=== PATIENT | female | born 1940 | race Caucasian/White ===

== ENCOUNTER → 2016-12-19 | Outpatient (REF) | payer MEDICARE ==
[~2016-12-19] MED LIST: HYDR-3713 PO
[2016-12-19 12:48] LABS: MEAN CORPUSCULAR HEMOGLOBIN 27.2 pg (27.0-33.0); MEAN CORPUSCULAR HGB CONC 32.3 g/dl (32.0-36.5); MEAN CORPUSCULAR VOLUME 84.2 fl (80.0-96.0); PLATELET COUNT, AUTOMATED 270 k/mm3 (150-450); RED CELL DISTRIBUTION WIDTH 14.1 % (11.5-14.5); WHITE BLOOD COUNT 17.9 K/mm3 (4.0-10.0)
[2016-12-19 12:59] LABS: BANDS 3 % (< 11)
== END ==
LOC: M LABDRWAD 12:17
PROVIDERS: ATTEND Physician Assistant Medical
DX: R50.9 Fever, unspecified (principal)

== ENCOUNTER → 2017-01-09 | Outpatient (REF) | payer MEDICARE ==
[2017-01-09 13:35] LABS: BASO % 0.9 % (0.0-1.0); EOS # 0.1 K/mm3 (0.0-0.50); EOS % 2.2 % (0.0-3.0); LARGE UNSTAINED CELL # 0.1 K/mm3 (0.0-0.4); LARGE UNSTAINED CELL % 2.6 % (0.0-4.0); LYMPH # 1.8 K/mm3 (1.5-4.5); LYMPH % 36.7 % (24.0-44.0); MEAN CORPUSCULAR HEMOGLOBIN 27.1 pg (27.0-33.0); MEAN CORPUSCULAR HGB CONC 31.9 g/dl (32.0-36.5); MEAN CORPUSCULAR VOLUME 84.8 fl (80.0-96.0); MONO # 0.3 K/mm3 (0.0-0.8); NEUTROPHILS # 2.4 K/mm3 (1.8-7.7); NEUTROPHILS % 50.5 % (36.0-66.0); PLATELET COUNT, AUTOMATED 318 k/mm3 (150-450); RED CELL DISTRIBUTION WIDTH 13.9 % (11.5-14.5); WHITE BLOOD COUNT 4.8 K/mm3 (4.0-10.0)
[2017-01-09 13:47] LABS: ALBUMIN 3.5 GM/DL (3.2-5.2); ALBUMIN/GLOBULIN RATIO 1.06 (1.00-1.93); ALKALINE PHOSPHATASE 68 U/L (45-117); ALT/SGPT 25 U/L (12-78); ANION GAP 8 MEQ/L (8-16); AST/SGOT 17 U/L (15-37); BILIRUBIN,TOTAL 0.4 MG/DL (0.2-1.0); BLOOD UREA NITROGEN 15 MG/DL (7-18); CALCIUM LEVEL 8.9 MG/DL (8.8-10.2); CARBON DIOXIDE LEVEL 27 MEQ/L (21-32); CHLORIDE LEVEL 108 MEQ/L (98-107); CHOLESTEROL LEVEL 263 MG/DL (<200); CREATININE FOR GFR 0.82 MG/DL (0.55-1.02); GLOMERULAR FILTRATION RATE > 60.0 (>39); GLUCOSE, FASTING 97 MG/DL (83-110); POTASSIUM SERUM 4.3 MEQ/L (3.5-5.1); SODIUM LEVEL 143 MEQ/L (136-145); TOTAL PROTEIN 6.8 GM/DL (6.4-8.2); TRIGLYCERIDES LEVEL 235 MG/DL (<150)
== END ==
LOC: M SFHCADAM 09:00
PROVIDERS: ATTEND Physician Assistant Medical
DX: E78.5 Hyperlipidemia, unspecified (principal); E55.9 Vitamin D deficiency, unspecified

== ENCOUNTER → 2017-12-24 | Outpatient (REF) | payer MEDICARE ==
[2017-12-24 12:48] LABS: BASO % 0.6 % (0.0-1.0); EOS # 0.2 10^3/uL (0.0-0.50); EOS % 3.3 % (0.0-3.0); HEMATOCRIT 36.1 % (36.0-47.0); HEMOGLOBIN 10.9 g/dl (12.0-15.5); IMMATURE GRANULOCYTE % 0.4 % (0-3.0); LYMPH # 1.8 10^3/uL (1.5-4.5); LYMPH % 37.1 % (24.0-44.0); MEAN CORPUSCULAR HEMOGLOBIN 24.7 pg (27.0-33.0); MEAN CORPUSCULAR HGB CONC 30.2 g/dl (32.0-36.5); MEAN CORPUSCULAR VOLUME 81.9 fl (80.0-96.0); MONO # 0.4 10^3/uL (0.0-0.8); MONO % 8.2 % (0.0-5.0); NEUTROPHILS # 2.5 10^3/uL (1.8-7.7); NEUTROPHILS % 50.4 % (36.0-66.0); PLATELET COUNT, AUTOMATED 271 10^3/uL (150-450); RED BLOOD COUNT 4.41 10^6/uL (4.00-5.40); WHITE BLOOD COUNT 4.9 10^3/uL (4.0-10.0)
[2017-12-24 13:05] LABS: TOTAL 25(OH) VITAMIN D 32.8 NG/ML (30.0-100.0)
[2017-12-24 13:25] LABS: ALBUMIN 3.6 GM/DL (3.2-5.2); ALBUMIN/GLOBULIN RATIO 1.06 (1.00-1.93); ALKALINE PHOSPHATASE 67 U/L (45-117); ALT/SGPT 23 U/L (12-78); ANION GAP 6 MEQ/L (8-16); AST/SGOT 22 U/L (7-37); BILIRUBIN,TOTAL 0.4 MG/DL (0.2-1.0); BLOOD UREA NITROGEN 13 MG/DL (7-18); CALCIUM LEVEL 8.4 MG/DL (8.8-10.2); CARBON DIOXIDE LEVEL 29 MEQ/L (21-32); CHLORIDE LEVEL 108 MEQ/L (98-107); CHOLESTEROL LEVEL 260 MG/DL (<200); CHOLESTEROL RISK RATIO 6.842 (<5); CREATININE FOR GFR 0.95 MG/DL (0.55-1.30); GLOMERULAR FILTRATION RATE > 60.0 (>39); GLUCOSE, FASTING 100 MG/DL (70-100); HDL CHOLESTEROL 38 MG/DL (>40); LDL CHOLESTEROL 173.6 MG/DL (<100); NON-HDL-C 222 MG/DL; POTASSIUM SERUM 4.3 MEQ/L (3.5-5.1); SODIUM LEVEL 143 MEQ/L (136-145); TRIGLYCERIDES LEVEL 242 MG/DL (<150)
== END ==
LOC: M SFHCADAM 07:59
DX: E78.5 Hyperlipidemia, unspecified (principal); E55.9 Vitamin D deficiency, unspecified
CPT/HCPCS: 84443

== ENCOUNTER → 2017-12-31 | Outpatient (REF) | payer MEDICARE ==
[2017-12-31 19:03] LABS: FERRITIN 5 NG/ML (8-252); IRON (FE) 33 UG/DL (50-170); PERCENT SATURATION 7.4 % (13.2-45.0); TOTAL IRON BINDING CAPACITY 448 UG/DL (250-450)
[2017-12-31 19:04] LABS: FOLATE 22.3 NG/ML; VITAMIN B12 LEVEL 591 PG/ML
[2017-12-31 19:24] LABS: BASO % 0.5 % (0.0-1.0); EOS # 0.1 10^3/uL (0.0-0.50); EOS % 2.1 % (0.0-3.0); HEMATOCRIT 35.8 % (36.0-47.0); HEMOGLOBIN 10.6 g/dl (12.0-15.5); IMMATURE GRANULOCYTE % 0.4 % (0-3.0); LYMPH # 1.9 10^3/uL (1.5-4.5); LYMPH % 33.3 % (24.0-44.0); MEAN CORPUSCULAR HEMOGLOBIN 24.1 pg (27.0-33.0); MEAN CORPUSCULAR HGB CONC 29.6 g/dl (32.0-36.5); MEAN CORPUSCULAR VOLUME 81.5 fl (80.0-96.0); MONO # 0.5 10^3/uL (0.0-0.8); MONO % 9.5 % (0.0-5.0); NEUTROPHILS % 54.2 % (36.0-66.0); PLATELET COUNT, AUTOMATED 287 10^3/uL (150-450); RED BLOOD COUNT 4.39 10^6/uL (4.00-5.40); RED CELL DISTRIBUTION WIDTH 15.9 % (11.5-14.5); WHITE BLOOD COUNT 5.6 10^3/uL (4.0-10.0)
== END ==
LOC: M SFHCADAM 13:42
DX: D64.9 Anemia, unspecified (principal)
CPT/HCPCS: 82746

== ENCOUNTER → 2018-04-15 | Outpatient (REF) | payer MEDICARE ==
[2018-04-15 13:37] LABS: HEMATOCRIT 42.2 % (36.0-47.0); HEMOGLOBIN 13.2 g/dl (12.0-15.5); MEAN CORPUSCULAR HGB CONC 31.3 g/dl (32.0-36.5); MEAN CORPUSCULAR VOLUME 89.4 fl (80.0-96.0); PLATELET COUNT, AUTOMATED 246 10^3/uL (150-450); RED BLOOD COUNT 4.72 10^6/uL (4.00-5.40); RED CELL DISTRIBUTION WIDTH 16.9 % (11.5-14.5); WHITE BLOOD COUNT 5.5 10^3/uL (4.0-10.0)
[2018-04-15 14:12] LABS: FERRITIN 14 NG/ML (8-252); IRON (FE) 61 UG/DL (50-170); PERCENT SATURATION 16.5 % (13.2-45.0); TOTAL IRON BINDING CAPACITY 369 UG/DL (250-450)
== END ==
LOC: M SFHCADAM 08:02
DX: D50.8 Other iron deficiency anemias (principal)
CPT/HCPCS: 83550

== ENCOUNTER → 2018-12-15 | Outpatient (CLI) | payer MEDICARE ==
--- NOTE | 2018-12-15 14:15 | REP ---
REASON FOR EXAM: Chest pain. COMPARISON: 01/25/2016. FINDINGS: The superior mediastinal structures are midline. The cardiac silhouette is unremarkable in size, shape, and position. The diaphragmatic surfaces of the lungs are regular, and the costophrenic angles are clear. The pulmonary mercado are clear. The imaged osseous structures are intact. IMPRESSION: There is no acute cardiopulmonary disease. Electronically Signed by Juanjose Betts DO 12/15/2018 03:39 P
== END ==
LOC: M ADAMS 11:59
PROVIDERS: ATTEND Family Medicine
DX: R07.9 Chest pain, unspecified (principal)
CPT/HCPCS: 71046; G0463

== ENCOUNTER → 2018-12-16 | Outpatient (REF) | payer MEDICARE ==
[2018-12-16 12:30] LABS: BASO % 0.6 % (0.0-1.0); EOS # 0.2 10^3/uL (0.0-0.50); EOS % 2.9 % (0.0-3.0); HEMATOCRIT 42.5 % (36.0-47.0); HEMOGLOBIN 13.7 g/dl (12.0-15.5); LYMPH # 1.8 10^3/uL (1.5-4.5); LYMPH % 35.1 % (24.0-44.0); MEAN CORPUSCULAR HEMOGLOBIN 29.9 pg (27.0-33.0); MEAN CORPUSCULAR HGB CONC 32.2 g/dl (32.0-36.5); MEAN CORPUSCULAR VOLUME 92.8 fl (80.0-96.0); MONO # 0.3 10^3/uL (0.0-0.8); MONO % 6.5 % (0.0-5.0); NEUTROPHILS # 2.8 10^3/uL (1.8-7.7); NEUTROPHILS % 54.1 % (36.0-66.0); PLATELET COUNT, AUTOMATED 241 10^3/uL (150-450); RED BLOOD COUNT 4.58 10^6/uL (4.00-5.40); WHITE BLOOD COUNT 5.2 10^3/uL (4.0-10.0)
[2018-12-16 14:45] LABS: ALBUMIN 3.7 GM/DL (3.2-5.2); ALT/SGPT 29 U/L (12-78); BILIRUBIN,TOTAL 0.3 MG/DL (0.2-1.0); BLOOD UREA NITROGEN 17 MG/DL (7-18); CALCIUM LEVEL 9.4 MG/DL (8.8-10.2); CARBON DIOXIDE LEVEL 30 MEQ/L (21-32); CHLORIDE LEVEL 106 MEQ/L (98-107); CHOLESTEROL LEVEL 306 MG/DL (<200); CHOLESTEROL RISK RATIO 7.285 (<5); CREATININE FOR GFR 0.84 MG/DL (0.55-1.30); FERRITIN 20 NG/ML (8-252); GLOMERULAR FILTRATION RATE > 60.0 (>39); GLUCOSE, FASTING 115 MG/DL (70-100); HDL CHOLESTEROL 42 MG/DL (>40); IRON (FE) 85 UG/DL (50-170); LDL CHOLESTEROL 209 MG/DL (<100); NON-HDL-C 264 MG/DL; PERCENT SATURATION 22.4 % (13.2-45.0); POTASSIUM SERUM 4.9 MEQ/L (3.5-5.1); SODIUM LEVEL 142 MEQ/L (136-145); TOTAL 25(OH) VITAMIN D 27.4 NG/ML (30.0-100.0); TOTAL IRON BINDING CAPACITY 380 UG/DL (250-450); TOTAL PROTEIN 6.8 GM/DL (6.4-8.2); TRIGLYCERIDES LEVEL 277 MG/DL (<150)
== END ==
LOC: M SFHCADAM 08:50
PROVIDERS: ATTEND Physician Assistant Medical
DX: D50.8 Other iron deficiency anemias (principal); E78.5 Hyperlipidemia, unspecified; E55.9 Vitamin D deficiency, unspecified

== ENCOUNTER → 2019-01-15 | Outpatient (REF) | payer MEDICARE ==
[2019-01-15 13:59] LABS: HEMOGLOBIN A1c 6.1 %
== END ==
LOC: M SFHCADAM 09:29
PROVIDERS: ATTEND Physician Assistant Medical
DX: R73.01 Impaired fasting glucose (principal)
CPT/HCPCS: 83036; G0463

== ENCOUNTER 2019-08-28 09:33 | Day surgery (SDC) | payer MEDICARE ==
[~2019-08-28] VITALS: Ht 167.6 cm; Wt 79.4 kg
[~2019-08-28 09:33] MED LIST changes: +FERR325T3 PO; +FISH1000 PO; +LIDOCAINE 2% INJ 100 MG/5 ML SDV (FOR ANES.) As Ordered ONE; +LORA-674 PO; +MULTCAP PO; +NS 1,000 ML IV ONE; +OSTE5TAB PO; +RA T500C2 PO; +propofoL 200 MG/20 ML VIAL As Ordered ONE
[2019-08-28] MEDS ORDERED: propofoL 200 MG/20 ML VIAL As Ordered ONE (11:38)
--- NOTE | 2019-08-28 11:55 | ROOR ---
Patient Name: Jeni Freeman Procedure Date: 08/28/2019 11:18 AM Date of : 1940 Age: 79 Room: [facility] Gender: Female Note Status: Finalized Procedure: Colonoscopy Indications: High risk colon cancer surveillance: Personal history of colonic polyps Providers: Kayden BENITEZ MD Referring MD: Lakesha HOUSTON DO Requestmarco Provider: Medicines: Monitored Anesthesia Care Complications: No immediate complications. Procedure: Pre-Anesthesia Assessment: - The heart rate, respiratory rate, oxygen saturations, blood pressure, adequacy of pulmonary ventilation, and response to care were monitored throughout the procedure. The Colonoscope was introduced through the anus and advanced to the cecum, identified by appendiceal orifice and ileocecal valve. The colonoscopy was performed without difficulty. The patient tolerated the procedure well. The quality of the bowel preparation was good. Findings: The perianal and digital rectal examinations were normal. A 5 mm polyp was found in the ascending colon. The polyp was sessile. The polyp was removed with a cold snare. Resection and retrieval were complete. Four carpet-like polyps were found in the hepatic flexure. The polyps were 5 to 10 mm in size. These polyps were removed with a piecemeal technique using a cold snare. Resection and retrieval were complete. Internal hemorrhoids were found during retroflexion. The hemorrhoids were small. The exam was otherwise normal throughout the examined colon. Impression: - One 5 mm polyp in the ascending colon, removed with a cold snare. Resected and retrieved. - Four 5 to 10 mm polyps at the hepatic flexure, removed piecemeal using a cold snare. Resected and retrieved. - Internal hemorrhoids. Recommendation: - Repeat colonoscopy in 3 years for surveillance. Kayden Benitez MD Kayden BENITEZ MD 08/28/2019 11:54:50 AM Electronically signed by Kayden BENITEZ MD Number of Addenda: 0 Note Initiated On: 08/28/2019 11:18 AM Estimated Blood Loss: Estimated blood loss: none.
[2019-08-28 12:31] VITALS: BP 143/67
== END 2019-08-28 12:30 | disposition home or self-care (01) ==
LOC: M OPP 09:33
PROVIDERS: ATTEND Internal Medicine Gastroenterology
DX: Z12.11 Encounter for screening for malignant neoplasm of colon (principal); Z86.010 Personal history of colon polyps; D12.2 Benign neoplasm of ascending colon; D12.3 Benign neoplasm of transverse colon; K64.8 Other hemorrhoids; Z88.1 Allergy status to other antibiotic agents; Z88.5 Allergy status to narcotic agent

== ENCOUNTER → 2020-01-12 | Outpatient (REF) | payer MEDICARE ==
[~2020-01-12] MED LIST changes: -LIDOCAINE 2% INJ 100 MG/5 ML SDV (FOR ANES.) As Ordered ONE; -NS 1,000 ML IV ONE; -propofoL 200 MG/20 ML VIAL As Ordered ONE
[2020-01-12 13:32] LABS: ALBUMIN 3.4 GM/DL (3.2-5.2); ALT/SGPT 25 U/L (12-78); BILIRUBIN,TOTAL 0.5 MG/DL (0.2-1.0); BLOOD UREA NITROGEN 20 MG/DL (7-18); CALCIUM LEVEL 9.2 MG/DL (8.8-10.2); CARBON DIOXIDE LEVEL 31 MEQ/L (21-32); CHLORIDE LEVEL 108 MEQ/L (98-107); CHOLESTEROL LEVEL 296 MG/DL (<200); CREATININE FOR GFR 0.93 MG/DL (0.55-1.30); FERRITIN 21 NG/ML (8-252); GLOMERULAR FILTRATION RATE > 60.0 (>39); GLUCOSE, FASTING 105 MG/DL (70-100); HDL CHOLESTEROL 37 MG/DL (>40); IRON (FE) 113 UG/DL (50-170); LDL CHOLESTEROL 207 MG/DL (<100); NON-HDL-C 259 MG/DL; PERCENT SATURATION 31.9 % (13.2-45.0); POTASSIUM SERUM 4.6 MEQ/L (3.5-5.1); SODIUM LEVEL 144 MEQ/L (136-145); TOTAL IRON BINDING CAPACITY 354 UG/DL (250-450); TOTAL PROTEIN 6.7 GM/DL (6.4-8.2); TRIGLYCERIDES LEVEL 260 MG/DL (<150)
[2020-01-12 13:40] LABS: FOLATE > 24.0 NG/ML; VITAMIN B12 LEVEL 760 PG/ML
[2020-01-12 13:48] LABS: BASO % 0.7 % (0.0-1.0); EOS # 0.2 10^3/uL (0.0-0.5); EOS % 3.6 % (0.0-3.0); HEMATOCRIT 44.2 % (36.0-47.0); HEMOGLOBIN 13.9 g/dl (12.0-15.5); LYMPH % 37.8 % (24.0-44.0); MEAN CORPUSCULAR HEMOGLOBIN 29.4 pg (27.0-33.0); MEAN CORPUSCULAR HGB CONC 31.4 g/dl (32.0-36.5); MEAN CORPUSCULAR VOLUME 93.4 fl (80.0-96.0); MONO # 0.5 10^3/uL (0.0-0.8); NEUTROPHILS # 2.6 10^3/uL (1.5-8.5); NEUTROPHILS % 48.5 % (36.0-66.0); PLATELET COUNT, AUTOMATED 214 10^3/uL (150-450); RED BLOOD COUNT 4.73 10^6/uL (4.00-5.40); WHITE BLOOD COUNT 5.3 10^3/uL (4.0-10.0)
== END ==
LOC: M SFHCADAM 08:56
PROVIDERS: ATTEND Physician Assistant Medical
DX: E55.9 Vitamin D deficiency, unspecified (principal); D50.8 Other iron deficiency anemias; E78.2 Mixed hyperlipidemia; R73.01 Impaired fasting glucose; E78.1 Pure hyperglyceridemia

== ENCOUNTER → 2021-05-29 | Outpatient (REF) | payer MEDICARE ==
[2021-05-29 13:54] LABS: HEMOGLOBIN A1c 5.6 %
[2021-05-29 14:07] LABS: MAU/CREAT RATIO 10.1 MCG/MG (0.0-30.0)
[2021-05-29 14:08] LABS: CHOLESTEROL RISK RATIO 6.166 (<5); THYROID STIMULATING HORMONE 1.87 uIU/ML (0.358-3.740)
[2021-05-29 14:10] LABS: TOTAL 25(OH) VITAMIN D 35.1 NG/ML (30.0-100.0)
== END ==
LOC: M SFHCADAM 08:10
PROVIDERS: ATTEND Physician Assistant Medical
DX: E55.9 Vitamin D deficiency, unspecified (principal); D50.8 Other iron deficiency anemias; E78.2 Mixed hyperlipidemia; R73.01 Impaired fasting glucose; E78.1 Pure hyperglyceridemia; Z79.899 Other long term (current) drug therapy

== ENCOUNTER → 2022-05-31 | Outpatient (REF) | payer MEDICARE ==
[2022-05-31 13:35] LABS: BASO % 0.5 % (0.0-1.0); EOS # 0.2 10^3/uL (0.0-0.5); EOS % 2.4 % (0.0-3.0); HEMATOCRIT 44.3 % (36.0-47.0); LYMPH % 31.5 % (24.0-44.0); MEAN CORPUSCULAR HEMOGLOBIN 30.3 pg (27.0-33.0); MEAN CORPUSCULAR HGB CONC 31.6 g/dl (32.0-36.5); MEAN CORPUSCULAR VOLUME 95.9 fl (80.0-96.0); MONO # 0.5 10^3/uL (0.0-0.8); MONO % 8.7 % (2.0-8.0); NEUTROPHILS # 3.5 10^3/uL (1.5-8.5); NEUTROPHILS % 56.6 % (36.0-66.0); PLATELET COUNT, AUTOMATED 215 10^3/uL (150-450); RED BLOOD COUNT 4.62 10^6/uL (4.00-5.40); WHITE BLOOD COUNT 6.2 10^3/uL (4.0-10.0)
[2022-05-31 14:31] LABS: ALBUMIN 3.7 GM/DL (3.2-5.2); ALT/SGPT 25 U/L (12-78); BILIRUBIN,TOTAL 0.3 MG/DL (0.2-1.0); BLOOD UREA NITROGEN 24 MG/DL (7-18); CALCIUM LEVEL 9.7 MG/DL (8.8-10.2); CARBON DIOXIDE LEVEL 31 MEQ/L (21-32); CHLORIDE LEVEL 107 MEQ/L (98-107); CHOLESTEROL LEVEL 267 MG/DL (<200); CHOLESTEROL RISK RATIO 7.416 (<5); CREATININE FOR GFR 0.86 MG/DL (0.55-1.30); FERRITIN 16 NG/ML (8-252); GLOMERULAR FILTRATION RATE > 60.0 (>32); GLUCOSE, FASTING 110 MG/DL (70-100); HDL CHOLESTEROL 36 MG/DL (>40); IRON (FE) 102 UG/DL (50-170); LDL CHOLESTEROL 167 MG/DL (<100); NON-HDL-C 231 MG/DL; PERCENT SATURATION 27.1 % (13.2-45.0); POTASSIUM SERUM 4.5 MEQ/L (3.5-5.1); SODIUM LEVEL 141 MEQ/L (136-145); TOTAL IRON BINDING CAPACITY 377 UG/DL (250-450); TOTAL PROTEIN 6.9 GM/DL (6.4-8.2); TRIGLYCERIDES LEVEL 319 MG/DL (<150)
[2022-05-31 14:49] LABS: MALB URINE SIEMENS 13.6 MG/L; MAU/CREAT RATIO 7.9 MCG/MG (0.0-30.0)
[2022-05-31 16:19] LABS: HEMOGLOBIN A1c 5.6 %
== END ==
LOC: M SFHCADAM 09:25
PROVIDERS: ATTEND Physician Assistant Medical
DX: E78.1 Pure hyperglyceridemia (principal); D50.8 Other iron deficiency anemias; E78.2 Mixed hyperlipidemia; E55.9 Vitamin D deficiency, unspecified; R73.01 Impaired fasting glucose; Z79.899 Other long term (current) drug therapy

== ENCOUNTER → 2022-07-26 | Outpatient (CLI) | payer MEDICARE | LOC: M CARPUL 08:29 | PROVIDERS: ATTEND Physician Assistant Medical | DX: R60.1 Generalized edema (principal) ==

== ENCOUNTER 2022-11-22 07:34 | Day surgery (SDC) | payer MEDICARE ==
[~2022-11-22] VITALS: Ht 167.6 cm; Wt 78.8 kg
[~2022-11-22 07:34] MED LIST changes: +ALEV220T22 PO; +DIPH-435 PO; +DOCU-153 PO; +DSS100CA PO; +FURO20TA2 PO; +NS 1,000 ML IV ONE; +OMEG10002 PO; +ONE-1TAB PO
[2022-11-22] MEDS ORDERED: propofoL 200 MG/20 ML VIAL As Ordered ONE (08:55)
[2022-11-22 09:42] VITALS: BP 121/55
== END 2022-11-22 09:44 | disposition home or self-care (01) ==
LOC: M OPP 07:34
PROVIDERS: ATTEND Internal Medicine Gastroenterology
DX: Z86.010 Personal history of colon polyps (principal); K64.8 Other hemorrhoids; K57.30 Diverticulosis of large intestine without perforation or abscess without bleeding; Z79.1 Long term (current) use of non-steroidal anti-inflammatories (NSAID); Z79.899 Other long term (current) drug therapy; Z88.1 Allergy status to other antibiotic agents; Z88.5 Allergy status to narcotic agent

== ENCOUNTER → 2023-03-22 | Outpatient (CLI) | payer MEDICARE ==
[~2023-03-22] MED LIST changes: -NS 1,000 ML IV ONE
[2023-03-22 10:28] LABS: BASO % 0.7 % (0.0-1.0); EOS # 0.1 10^3/uL (0.0-0.5); EOS % 2.5 % (0.0-3.0); HEMATOCRIT 44.6 % (36.0-47.0); HEMOGLOBIN 14.7 g/dl (12.0-15.5); LYMPH # 2.2 10^3/uL (1.5-5.0); LYMPH % 39.2 % (24.0-44.0); MEAN CORPUSCULAR HEMOGLOBIN 30.4 pg (27.0-33.0); MEAN CORPUSCULAR VOLUME 92.3 fl (80.0-96.0); MONO # 0.4 10^3/uL (0.0-0.8); NEUTROPHILS # 2.8 10^3/uL (1.5-8.5); NEUTROPHILS % 50.1 % (36.0-66.0); PLATELET COUNT, AUTOMATED 211 10^3/uL (150-450); RED BLOOD COUNT 4.83 10^6/uL (4.00-5.40); WHITE BLOOD COUNT 5.6 10^3/uL (4.0-10.0)
[2023-03-22 10:29] LABS: AMORPHOUS SEDIMENT MODERATE (NEGATIVE); APPEARANCE, URINE CLOUDY (CLEAR); BACTERIA, URINE AUTO NEGATIVE (NEGATIVE); BILIRUBIN, URINE AUTO NEGATIVE (NEGATIVE); BLOOD, URINE BLOOD NEGATIVE (NEGATIVE); COLOR, URINE YELLOW (YELLOW); GLUCOSE, URINE (UA) AUTO NEGATIVE (NEGATIVE); KETONE, URINE AUTO NEGATIVE (NEGATIVE); LEUKOCYTE ESTERASE, URINE AUTO 2+ (NEGATIVE); NITRITE, URINE AUTO NEGATIVE (NEGATIVE); PROTEIN, URINE AUTO NEGATIVE (NEGATIVE); RBC, URINE AUTO 0 /HPF (0-3); SPECIFIC GRAVITY URINE AUTO 1.017 (1.002-1.035); SQUAMOUS EPITHELIAL CELL UR AU 2 /HPF (0-6); UROBILINOGEN, URINE AUTO 0.2 mg/dL (0.0-2.0); WBC, URINE AUTO 7 /HPF (0-3)
[2023-03-22 10:52] LABS: HEMOGLOBIN A1c 5.6 % (4.0-6.0)
[2023-03-22 10:57] LABS: CREATININE, URINE 116.1 MG/DL
[2023-03-22 10:58] LABS: MAU/CREAT RATIO 2.5 MCG/MG (0.0-30.0)
[2023-03-22 10:59] LABS: C REACTIVE PROTEIN QUANTITATIV < 0.40 MG/DL (<1.0)
[2023-03-22 11:00] LABS: CPK CREATINE PHOSPHOKINASE 181 U/L (34-145)
[2023-03-22 11:04] LABS: ALBUMIN 3.8 G/DL (3.2-5.2); ALKALINE PHOSPHATASE 63 U/L (46-116); ALT/SGPT 21 U/L (7.0-40); AST/SGOT 15 U/L (<34); BILIRUBIN,TOTAL 0.5 MG/DL (0.3-1.2); BLOOD UREA NITROGEN 22 MG/DL (9-23); CALCIUM LEVEL 9.4 MG/DL (8.3-10.6); CARBON DIOXIDE LEVEL 31 MMOL/L (20-31); CHLORIDE LEVEL 104 MMOL/L (98-107); CHOLESTEROL LEVEL 282 MG/DL (<200); CHOLESTEROL RISK RATIO 6.52 (<5); CREATININE FOR GFR 0.94 MG/DL (0.55-1.30); FERRITIN 35.1 NG/ML (7.3-270.7); FREE T4 1.09 NG/DL (0.89-1.76); GLOMERULAR FILTRATION RATE > 60.0 (>32); GLUCOSE, FASTING 99 MG/DL (74-106); HDL CHOLESTEROL 43.2 MG/DL (>40); LDL CHOLESTEROL 193.2 MG/DL (<100); NON-HDL-C 238.8 MG/DL; POTASSIUM SERUM 4.6 MMOL/L (3.5-5.1); SODIUM LEVEL 142 MMOL/L (136-145); THYROGLOBULIN ANTIBODY < 15.0 U/ML (<60.0); THYROID STIMULATING HORMONE 2.773 uIU/ML (0.55-4.78); TOTAL PROTEIN 6.9 G/DL (5.7-8.2); TRIGLYCERIDES LEVEL 228 MG/DL (<150); VITAMIN B12 LEVEL 668 PG/ML (211-911)
[2023-03-23 13:35] LABS: H PYLORI SERUM QUANT IgG ABY 0.51 (0.00-0.79); INSULIN LEVEL 14.6 uIU/mL (2.6-24.9)
== END ==
LOC: M PLALAB 08:25
PROVIDERS: ATTEND Family Medicine
DX: E55.9 Vitamin D deficiency, unspecified (principal); D50.8 Other iron deficiency anemias; E78.5 Hyperlipidemia, unspecified; R73.01 Impaired fasting glucose

== ENCOUNTER → 2023-05-29 | Outpatient (CLI) | payer MEDICARE ==
[~2023-05-29] MED LIST changes: +LORA-1041 PO; -LORA-674 PO
== END ==
LOC: M RAD 12:03
PROVIDERS: ATTEND Physician Assistant
DX: M79.662 Pain in left lower leg (principal); R20.9 Unspecified disturbances of skin sensation; R09.89 Other specified symptoms and signs involving the circulatory and respiratory systems

== ENCOUNTER → 2023-11-13 | Outpatient (REF) | payer MEDICARE ==
[~2023-11-13] MED LIST changes: -DOCU-153 PO; +MULT18TA PO; -ONE-1TAB PO; +STOO100C30 PO
[2023-11-13 14:18] LABS: BASO # 0.1 10^3/uL (0.0-0.2); BASO % 0.8 % (0.0-1.0); EOS # 0.2 10^3/uL (0.0-0.5); HEMATOCRIT 44.9 % (36.0-47.0); HEMOGLOBIN 14.6 g/dl (12.0-15.5); LYMPH # 2.2 10^3/uL (1.5-5.0); LYMPH % 36.9 % (24.0-44.0); MEAN CORPUSCULAR HEMOGLOBIN 30.5 pg (27.0-33.0); MEAN CORPUSCULAR HGB CONC 32.5 g/dl (32.0-36.5); MEAN CORPUSCULAR VOLUME 93.9 fl (80.0-96.0); MONO # 0.5 10^3/uL (0.0-0.8); MONO % 7.6 % (2.0-8.0); NEUTROPHILS # 3.1 10^3/uL (1.5-8.5); NEUTROPHILS % 51.5 % (36.0-66.0); PLATELET COUNT, AUTOMATED 208 10^3/uL (150-450); RED BLOOD COUNT 4.78 10^6/uL (4.00-5.40)
[2023-11-13 14:20] LABS: BILIRUBIN,TOTAL 0.5 MG/DL (0.3-1.2); CALCIUM LEVEL 9.9 MG/DL (8.3-10.6); CHOLESTEROL RISK RATIO 3.49 (<5); CREATININE FOR GFR 1.04 MG/DL (0.55-1.30); HDL CHOLESTEROL 43.8 MG/DL (>40); LDL CHOLESTEROL 68.4 MG/DL (<100); NON-HDL-C 109.2 MG/DL; POTASSIUM SERUM 4.5 MMOL/L (3.5-5.1); TOTAL 25(OH) VITAMIN D 43.8 NG/ML (20.0-100.0); TOTAL PROTEIN 6.7 G/DL (5.7-8.2)
[2023-11-13 14:30] LABS: HEMOGLOBIN A1c 5.8 % (4.0-6.0)
== END ==
LOC: M SFHCPLAZ 10:26
PROVIDERS: ATTEND Physician Assistant
DX: E55.9 Vitamin D deficiency, unspecified (principal); D50.8 Other iron deficiency anemias; E78.2 Mixed hyperlipidemia; R73.01 Impaired fasting glucose

== ENCOUNTER → 2025-04-21 | Outpatient (CLI) | payer MEDICARE, MEDICAID ==
[~2025-04-21] MED LIST changes: -RA T500C2 PO; +TURM500C10 PO
== END ==
LOC: M PLAIMG 15:47
DX: G62.9 Polyneuropathy, unspecified (principal); M25.78 Osteophyte, vertebrae

== ENCOUNTER → 2025-04-21 | Outpatient (CLI) | payer MEDICARE, MEDICAID ==
[2025-04-21 19:04] LABS: PLATELET COUNT, AUTOMATED 222 10^3/uL (150-450)
[2025-04-21 19:33] LABS: TOTAL 25(OH) VITAMIN D 29.5 NG/ML (20.0-100.0)
[2025-04-21 19:35] LABS: VITAMIN B12 LEVEL 820 PG/ML (211-911)
[2025-04-21 19:36] LABS: FREE T4 1.06 NG/DL (0.89-1.76)
[2025-04-21 19:42] LABS: ALT/SGPT 21 U/L (7.0-40); AST/SGOT 22 U/L (<34); CALCIUM LEVEL 9.5 MG/DL (8.3-10.6); CARBON DIOXIDE LEVEL 30 MMOL/L (20-31); CHLORIDE LEVEL 103 MMOL/L (98-107); CHOLESTEROL LEVEL 295 MG/DL (<200); CHOLESTEROL RISK RATIO 7.02 (<5); CREATININE FOR GFR 0.85 MG/DL (0.55-1.30); GLOMERULAR FILTRATION RATE 67.9 (>32); LDL CHOLESTEROL 197.6 MG/DL (<100); NON-HDL-C 253.0 MG/DL; POTASSIUM SERUM 4.7 MMOL/L (3.5-5.1); SODIUM LEVEL 140 MMOL/L (136-145); TRIGLYCERIDES LEVEL 277 MG/DL (<150)
[2025-04-21 20:00] LABS: ESTIMATED AVERAGE GLUCOSE 126.0 MG/DL (60-110)
[2025-04-26 17:47] LABS: FREE KAPPA LIGHT CHAINS SERUM 19.4 mg/L (3.3-19.4); FREE LAMBDA LIGHT CHAINS SERUM 13.5 mg/L (5.7-26.3); KAPPA/LAMBDA RATIO SERUM 1.44 (0.26-1.65)
== END ==
LOC: M PLALAB 15:31
DX: D50.8 Other iron deficiency anemias (principal); G62.9 Polyneuropathy, unspecified; Z13.29 Encounter for screening for other suspected endocrine disorder; E55.9 Vitamin D deficiency, unspecified; R73.01 Impaired fasting glucose; E78.2 Mixed hyperlipidemia; I50.32 Chronic diastolic (congestive) heart failure